=== PATIENT | female | born 1965 | race Caucasian/White ===

== ENCOUNTER → 2018-09-16 | Outpatient (CLI) | payer OTHER | LOC: HYPER 07-13 06:37 | DX: T81.49XA Infection following a procedure, other surgical site, initial encounter (principal); R21 Rash and other nonspecific skin eruption; D05.90 Unspecified type of carcinoma in situ of unspecified breast; K25.9 Gastric ulcer, unspecified as acute or chronic, without hemorrhage or perforation; F39 Unspecified mood [affective] disorder; F32.9 Major depressive disorder, single episode, unspecified; F41.9 Anxiety disorder, unspecified; Z90.710 Acquired absence of both cervix and uterus; Z85.3 Personal history of malignant neoplasm of breast; Y92.89 Other specified places as the place of occurrence of the external cause; Y83.8 Other surgical procedures as the cause of abnormal reaction of the patient, or of later complication, without mention of misadventure at the time of the procedure ==